=== PATIENT | female | born 1965 | race Caucasian/White ===

== ENCOUNTER 2019-08-21 13:13 | Emergency (ER) | payer MEDICARE ==
[~2019-08-21 13:13] MED LIST: Iopamidol 370 76% 100 ML VIAL ONE
[2019-08-21 13:25] LABS: #Basophils 0.1 thou/uL (0.0-0.2); #Eosinphils 0.2 thou/uL (0.0-0.7); #Lymphocytes 2.7 thou/uL (1.20-3.40); #Monocytes 0.9 thou/uL (0.11-0.59); #Neutrophils 7.4 thou/uL (1.40-6.50); %Basophils 1.3 % (0.0-1.0); %Eosinophils 1.4 % (0.0-10.0); %Monocytes 7.7 % (0.0-10.0); %Neutrophils 65.7 % (42.0-75.0); Hemoglobin 15.1 g/dL (12.0-16.0); Mean Corpuscular HGB CONC 31.4 g/dL (32.0-36.0); Mean Corpuscular Hemoglobin 28.9 pg (27.0-31.0); Mean Corpuscular Volume 92.1 fL (78.0-98.0); Mean Platelet Volume 7.2 fL (7.4-10.4); Platelet Count 344 thou/uL (130-400); RBC Distribution Width 13.2 % (11.5-14.5); Red Blood Cell (RBC) Count 5.23 mill/uL (4.20-5.40); White Blood Cell (WBC) Count 11.3 thou/uL (4.8-10.8)
[2019-08-21 13:35] LABS: INR-International Normal Ratio 1.1; Prothrombin Time 13.8 SEC (12.0-14.7)
[2019-08-21 13:36] LABS: PTT 30.7 SEC (22.9-36.1)
[2019-08-21 13:44] LABS: ALT (SGPT) 189 U/L (8-55); AST (SGOT) 117 U/L (5-34); Albumin 4.2 g/dL (3.5-5.0); Alkaline Phosphatase 149 U/L (40-110); Anion Gap 16 mmol/L (10-20); BUN (Urea Nitrogen) 11 mg/dL (9.8-20.1); Bilirubin, Total 0.2 mg/dL (0.2-1.2); Calc. Creatinine Clearance 0 mL/min (70-130); Calcium 9.4 mg/dL (7.8-10.44); Carbon Dioxide 22 mmol/L (22-29); Chloride 106 mmol/L (98-107); Estimated GFR-MDRD 75; Globulin 3.9 g/dL (2.4-3.5); Glucose 110 mg/dL (70-105); Potassium 4.3 mmol/L (3.5-5.1); Protein, Total 8.1 g/dL (6.0-8.3); Sodium 140 mmol/L (136-145)
--- NOTE | 2019-08-21 13:44 | CT ---
CT HEAD WITHOUT CONTRAST: 08/21/2019 HISTORY: Left arm weakness. COMPARISON: 05/30/2019 TECHNIQUE: Axial CT imaging at 5 mm intervals from the vertex through the skull base without contrast. FINDINGS: There is mild mucosal thickening involving the maxillary sinus on the left. There is evidence of a pr ior left sided craniotomy with subjacent encephalomalacia involving the posterior left temporal lobe, unchanged when compared to the 2019 exam. No intracranial hemorrhage, midline shift, or mass effect. IMPRESSION: Stable head CT. No intracranial hemorrhage. Results called to Dr. Ocasio at 1:33 p.m. on 08/21/2019. CODE CR POS: NORMA
[2019-08-21 13:56] LABS: Acetaminophen Less than 6.0 mcg/mL (10.0-30.0); Alcohol Less than 10 mg/dL (Less than 10); Salicylate Less than 8.0 mg/dL (15.0-30.0)
--- NOTE | 2019-08-21 14:12 | RAD ---
Portable frontal chest radiograph: 08/21/2019 COMPARISON: 07/13/2018 HISTORY: Left-sided numbness FINDINGS: Lungs are clear. Heart and mediastinal contours appear within normal limits. IMPRESSION: No acute findings.
[2019-08-21] MEDS ORDERED: Lorazepam 2 MG/ML VIAL ONE (15:28)
[2019-08-21] MEDS ORDERED: Aspirin 325 MG TAB ONE (15:28)
--- NOTE | 2019-08-21 16:09 | CT ---
CT ANGIOGRAM OF THE HEAD CT ANGIOGRAM OF THE NECK INDICATION: Stroke slurred speech. Left arm weakness. COMPARISON: None TECHNIQUE: CT angiogram of the head and neck are performed in the axial plane. Three-dimensional refo rmatted images are submitted for interpretation. FINDINGS: CTA OF THE HEAD WITH AND WITHOUT CONTRAST: POSTCONTRAST CT OF BRAIN: Pathologic enhancement: No pathologic enhancement the brain. Focus of encephalomalacia is [place] l[place], in the left temporal lobe. Left calvarial postsurgical changes are identified. Postcontrast soft tissue neck CT: Sinuses: Mild mucosal disease of both maxillary sinuses and ethmoid air cells. Orbits: Bilateral ocular lenses are appropriately located. Both globes are intact. Retrobulbar fat is preserved. Symmetric attenuation the optic nerves and ocular rectus muscles. Salivary glands:Symmetric attenuation the parotid and symmetrical glands Thyroid gland: Unremarkable Lymph nodes: No evidence of lymphadenopathy by size criteria. Paraspinal muscles: Symmetric attenuation of the sternocleidomastoid muscles. Appropriate attenuation of the paraspinal muscles. Cervical spine:Vertebral body height is maintained. No fracture. No significant central canal stenosi s or significant neural foraminal narrowing. Limited evaluation by technique. Upper mediastinum and lung apices: No acute abnormality CTA OF THE NECK WITH CONTRAST: Aorta: Appropriate enhancement and luminal diameter. Right carotid artery: Right carotid artery origin, common carotid artery, carotid bifurcation and int ernal carotid artery have appropriate enhancement and luminal diameter. Left carotid: Left carotid artery origin, common carotid, carotid bifurcation and internal carotid ar k[place] have appropriate enhancement and luminal diameter. Subclavian arteries:Patent and symmetric Vertebral arteries:Patent throughout their course in the neck. Dominant left vertebral artery. CTA OF THE BRAIN: Intracranial internal carotid arteries:Evaluation due to poor timing of contrast bolus. No evidence o f high-grade stenosis Anterior circulation: Limited evaluation due to poor timing of contrast bolus. Grossly symmetric A1, M1 segments as well as proximal A2 segments and proximal MCA branches. Intracranial vertebral arteries and posterior circulation: Limited evaluation due to timing of contra st bolus. Limited evaluation of bilateral PICA artery origins. Both vertebral arteries supply a unremarkable basilar artery. Bilateral P1 segments are grossly unremarkable. IMPRESSION: 1. No significant stenosis based upon NASCET criteria with regards to the cervical carotid arteries 2. Limited evaluation of the [place]. No evidence of high-grade vascular occlusion. 3. Results of study discussed with Dr. Ocasio 08/21/2019 at 4:07 PM Code CR Transcribed Date/Time: 08/21/2019 4:27 PM
== END 2019-08-21 16:18 | disposition short-term general hospital (02) ==
LOC: NAV ERS 13:13
DX: G40.909 Epilepsy, unspecified, not intractable, without status epilepticus (principal); R53.1 Weakness; I10 Essential (primary) hypertension; F41.9 Anxiety disorder, unspecified; F17.210 Nicotine dependence, cigarettes, uncomplicated
CPT/HCPCS: 36416; 70450; 70496; 71045; 80053; 80307; 84484; 85025; 85610; 85730; 93005; 94760; 96374; J2060; Q9967